=== PATIENT | female | born 1990 | race Caucasian/White ===

== ENCOUNTER 2016-07-07 09:38 | Inpatient (IN) | payer OTHER ==
[2016-07-07] MEDS ORDERED: Mineral Oil Sterile, TOPICAL* 25 ML BTL ONE (13:13)
[2016-07-07] MEDS ORDERED: Glycerin ADULT SUPP PR PRN (14:28)
[2016-07-07] MEDS ORDERED: Witch Hazel PAD* JAR TOPICAL PRN (14:28)
[2016-07-07] MEDS ORDERED: Acetaminophen TAB* 325 MG PO PRN (14:28)
[2016-07-07] MEDS ORDERED: Dibucaine 1% 28.35 GM TUBE PR PRN (14:28)
[2016-07-07] MEDS: Ibuprofen TAB* 600 MG PO PRN ×2 (16:04→22:00)
[2016-07-07] MEDS: Docusate CAP* 100 MG PO SCH (22:00)
[2016-07-08] MEDS: Ibuprofen TAB* 600 MG PO PRN ×3 (04:10→20:54)
[2016-07-08 08:41] LABS: Hematocrit 34 % (35-47); Hemoglobin 11.4 g/dl (12.0-16.0); Mean Corpuscular HGB Conc 34 g/dl (31-36); Mean Corpuscular Hemoglobin 31 pg (27-31); Mean Corpuscular Volume 93 fL (80-97); Mean Platelet Volume 10 um3 (7.4-10.4); Red Blood Count 3.66 10^6/ul (4.0-5.4); Red Cell Distribution Width 13 % (10.5-15); White Blood Count 16.8 10^3/ul (3.5-10.8)
[2016-07-08] MEDS ORDERED: Ferrous Gluconate TAB* 324 MG TAB PO SCH (09:00)
[2016-07-08] MEDS: Docusate CAP* 100 MG PO SCH ×3 (09:16→20:54)
[2016-07-09 14:25] VITALS: BP 120/65
== END 2016-07-09 11:44 | disposition home or self-care (01) | DRG 560 ==
LOC: MCHOBOUT 09:38 → MCHOB 10:26
PROVIDERS: ADMIT Nurse Practitioner; ATTEND Nurse Practitioner
PROC: 10E0XZZ Delivery of Products of Conception, External Approach (ICD-10-PCS; principal; 2016-07-07)
PROC: 0HQ9XZZ Repair Perineum Skin, External Approach (ICD-10-PCS; 2016-07-07)
DX: O70.0 First degree perineal laceration during delivery (principal); Z88.7 Allergy status to serum and vaccine; Z37.0 Single live birth; Z3A.37 37 weeks gestation of pregnancy
CPT/HCPCS: 36415; 85025; A9270-GY

== ENCOUNTER 2018-11-18 03:13 | Inpatient (IN) | payer OTHER ==
[2018-11-18] MEDS ORDERED: Buffered Lidocaine 1% SYRIN* 1 ML/SYRINGE INTRADERM ONE (03:26)
[2018-11-18] MEDS ORDERED: Lactated Ringers 1000 ML Bag* 1,000 ML IV ONE (03:26)
[2018-11-18] MEDS ORDERED: Lactated Ringers 1000 ML Bag* 1,000 ML IV SCH ×2 (04:00→05:00)
[2018-11-18] MEDS ORDERED: OXYTOCIN* 10 UNITS/ML 1 ML VIAL IM ONE (04:19)
[2018-11-18] MEDS ORDERED: Dibucaine 1% 28.35 GM TUBE PR PRN (04:19)
[2018-11-18] MEDS ORDERED: Glycerin ADULT SUPP PR PRN (04:19)
[2018-11-18] MEDS ORDERED: Acetaminophen TAB* 325 MG PO PRN (04:19)
[2018-11-18] MEDS ORDERED: Witch Hazel PAD* JAR TOPICAL PRN (04:19)
[2018-11-18] MEDS ORDERED: Ibuprofen TAB* 600 MG ONE (04:26)
--- NOTE | 2018-11-18 04:27 | HP ---
General Information - Reason for Visit 28yo, , IUP@40, here in active labor - General Information Maternal Age: 28 Grav: 3 Para: 1 SAB: 0 IEA: 1 Estimated Due Date: 11/18/18 Determined By: Early Ultrasound Gestational Age in Weeks/Days: 40+0 Maternal Blood Type and Rh: O Positive - Results this Serology/RPR Result: Non-Reactive Rubella Result: Immune HBsAg Result: Negative HIV Result: Negative GBS Culture Result: Negative Past Medical History Delivery History: Hx Uncomplicated Vaginal Delivery - G1: termination for spina bifida; G2: bilateral labial lacerations Past Medical History Comment: Hx of HSV2 MTHFR deficiency - heterozygous (mild) Pertinent Past Surgical History: None Family History Comment: Mother: hip replacement, PVD, knee replacement, varicose veins PGM: DMII, diet controlled PGF: lung cancer MGM: skin cancer, diabetes MGF: MVA Paternal aunt: child with T13 Cousin: child with Nemaline Myopathy - Antepartal Records Antepartal Records: Reviewed, Complicated by: - hx HSV2 - no outbreaks - prophylaxis Review of Systems Constitutional: Uncomfortable CV Complaint: No Respiratory: Shortness of Breath: No Gastrointestinal: No Nausea/Vomiting, Normal Bowel Movement Genitourinary: No Dysuria, No Bleeding, No Leaking Fluid Musculoskeletal: Contractions Neurological: No Headache, No Visual Changes Movement: Normal Exam Allergies/Adverse Reactions: Allergies tuberculin,PPD,multi-puncture Allergy (Verified 11/06/18 11:00) Rash And Itching Vital Signs 11/18/18 04:20 Temperature 98.6 F Pulse Rate 88 Blood Pressure 120/78 (mmHg) - Measurements Height: 5 ft 1.5 in Weight: 152 lb Weight in lbs: [id number] Body Mass Index (BMI): 28.2 Pre- Weight: 125 lb Weight Gained This : 27 lbs and 0 ozs - Exam Breast: Breast Exam Deferred CVA: No CVA Tenderness Extremities: No Edema Heart: Normal Rhythm/Heart Sounds HEENT: No Significant Findings Lungs: Clear Bilaterally Rectal: Rectal Exam Deferred Reflexes: DTR 2+ - Abdominal Exam Abdomen Exam: Non-Tender Abdomen Exam Comment: S<D, same as last child, declined growth sono - Ultrasound/Biophysical Profile Ultrasound Status: Not Done Targeted Exam Findings Estimated Weight: 6.5lbs Cervical Exam: 6cm, 7cm Effacement: 100% Station: -1 Presenting Part: Vertex Membrane Status: Bulging Bleeding/Discharge: None EFM Findings - External Monitor Findings Baseline Heart Rate: 130 External Monitor Findings: Accelerations Present, No Pattern of Variable or Late Decelerations, Variability Moderate, Baseline Stable External Monitor Findings Comment: No evidence of metabolic acidemia Contractions: Regular, Strong, 45-90 Seconds Assessment/Plan - Assessment , IUP@40 Active labor GBS negative, O positive course complicated by hx of HSV2, on prophylaxis No evidence of metabolic acidemia Contractions q2-3, good resting tone Anticipate progression to - Plan Plan: Admit - Anticipate Vaginal Delivery - Date/Time of Admission Date of Admission: 11/18/18 Time of Admission: 02:00
[2018-11-18] MEDS: Ibuprofen TAB* 600 MG PO PRN ×3 (04:28→18:05)
--- NOTE | 2018-11-18 04:48 | PROCNOTE ---
[facility] OB: Delivery Note - Delivery A Date of : 11/18/18 Time of : 03:49 [place] Sex: Male Score 1 Minute: 8 Score 5 Minutes: 9 Gestational Age in Weeks and Days at Delivery: 40 Weeks and 0 Days Delivery Method: Spontaneous Vaginal Labor: Spontaneous Did Patient attempt ?: N/A, No Previous Amniotic Fluid: Meconium Estimated Blood Loss: 400 Anesthesia/Analgesia: None Delivered By: Michaela Rodriguez Nursery Level of Nursery: Regular/Bedside - Perineum Perineal Injury: Perineal Laceration - Bilateral labial lacerations, repaired under local anesthesia with 1% lido Perineal Repair: By Delivering Practioner - Events Delivery Events of Note: Pitocin Only After Delivery, Precipitous Delivery - Additional Delivery Notes Additional Delivery Notes: 28 yo G3, now P2 at 40+0 weeks admitted in active labor. AROM at 0339 to thin meconium. Quickly progressed to complete. Pt began pushing spontaneously at 0344, with of liveborn male at 0349. OA to HUBER, shoulders followed easily , nuchal x1 - easily reduced after of body. Infant to mother's chest, dried and stimulated with spontaneous cry. 's 8 and 9. Delayed cord clamping, cord then cut by pt's mother. Spontaneous narayan delivery of intact placenta at 0353. Fundus firm with massage, Pitocin, 10mg administered IM. EBL 400 mL. After careful inspection bilateral labial lacerations were identified and repaired in the usual fashion. Normal anatomy restored, hemostasis achieved. Infant . Mother and in stable condition at time of note.
[2018-11-18] MEDS ORDERED: Simethicone TAB* 80 MG TAB.CHEW PO SCH (08:30)
[2018-11-18] MEDS: Docusate CAP* 100 MG PO SCH ×3 (08:42→20:37)
[2018-11-19] MEDS: Ibuprofen TAB* 600 MG PO PRN ×2 (00:37→06:33)
[2018-11-19 06:30] LABS: ABS Eosinophils 0.2 10^3/ul (0-0.6); ABS Lymphocytes 2.8 10^3/ul (1.0-4.8); ABS Neutrophils 8.3 10^3/ul (1.5-7.7); Eosinophil % 1.3 %; Hematocrit 38 % (35-47); Hemoglobin 12.6 g/dL (12.0-16.0); Lymphocyte % 22.6 %; Mean Corpuscular HGB Conc 34 g/dL (31-36); Mean Corpuscular Hemoglobin 31 pg (27-31); Mean Corpuscular Volume 93 fL (80-97); Mean Platelet Volume 9.2 fL (7.4-10.4); Platelet Count 159 10^3/uL (150-450); Red Blood Count 4.02 10^6 /uL (3.70-4.87); Red Cell Distribution Width 14 % (10-15); White Blood Count 12.3 10^3/uL (3.5-10.8)
[2018-11-19] MEDS: Docusate CAP* 100 MG PO SCH (07:56)
[2018-11-19 07:58] VITALS: BP 109/64
[2018-11-19] MEDS ORDERED: Ferrous Gluconate TAB* 324 MG TAB PO SCH (09:00)
== END 2018-11-19 10:06 | disposition home or self-care (01) | DRG 560 ==
LOC: MCHOBOUT 03:13 → MCHOB 03:22
PROVIDERS: ADMIT Advanced Practice Midwife; ATTEND Advanced Practice Midwife
PROC: 10E0XZZ Delivery of Products of Conception, External Approach (ICD-10-PCS; principal; 2018-11-18)
PROC: 0HQ9XZZ Repair Perineum Skin, External Approach (ICD-10-PCS; 2018-11-18)
PROC: 10907ZC Drainage of Amniotic Fluid, Therapeutic from Products of Conception, Via Natural or Artificial Opening (ICD-10-PCS; 2018-11-18)
DX: O77.0 Labor and delivery complicated by meconium in amniotic fluid (principal); Z37.0 Single live birth; O70.0 First degree perineal laceration during delivery; O69.81X0 Labor and delivery complicated by cord around neck, without compression, not applicable or unspecified; Z3A.40 40 weeks gestation of pregnancy
CPT/HCPCS: 36415; 85025; A9270-GY